=== PATIENT | male | born 1945 | race Two or more races ===

== ENCOUNTER 2022-01-10 19:14 | Inpatient (IN) | payer OTHER ==
[~2022-01-10] VITALS: Ht 182.9 cm; Wt 77.1 kg
--- NOTE | 2022-01-10 19:38 | NUR ---
PACIENTE ALERTA Y ORIENTADO POR ILAN. REFIERE DESDE EL MINE DE TERRY TENER SATURACION BAJA, AL MOMENTO DE REALIZAR EL TRIAGE EN 84% CON OXIGENO Y REFIERE SENTIRSE CANSADO.
[2022-01-10] MEDS ORDERED: OFEV150 MG (19:44)
[2022-01-10] MEDS ORDERED: ZOCOR80 MG (19:44)
[2022-01-10] MEDS ORDERED: CARVEDILOL ER40 MG (19:45)
[2022-01-10] MEDS ORDERED: TAMS0.4C (19:45)
[2022-01-10] MEDS ORDERED: ELIQUIS5 MG (19:45)
--- NOTE | 2022-01-10 20:10 | NUR ---
CANALIZACIONES FUERON EN BRAZO Y MANO DERECHA.
--- NOTE | 2022-01-10 21:21 | NUR ---
PTE SE EDUCA SOBRE EL TRATAMIENTO QUE RECIBIRA EN EL HOSPITAL Y EMILY REFIERE ENTENDER.SE LE MARTIN MUESTRAS DE LILI Y SE LE ADMINISTRA MEDICAMENTOS CALEB ORDEN MEDICA.
[2022-01-14] MEDS ORDERED: FUROSEMIDE40 MG (15:03)
[2022-01-14] MEDS ORDERED: TRELEGY ELLIPT1 EAC1 (15:03)
[2022-01-14] MEDS ORDERED: POTASSIUM CHLO10 MEQ (15:03)
[2022-01-14] MEDS ORDERED: ALPRAZOLAM0.5 MG (15:03)
[2022-01-14] MEDS ORDERED: CARVEDILOL12.5 M1 (15:04)
[2022-01-14] MEDS ORDERED: AZELASTINE137 MCG/0. (15:04)
[2022-01-14] MEDS ORDERED: FLONASE16 GM (15:04)
== END 2022-01-21 08:00 | disposition expired | DRG 196 ==
LOC: ER 19:14 → SEC-K 22:26 → SURH 01-11 09:24 → ICU 01-15 01:42
PROVIDERS: ADMIT Internal Medicine; ATTEND Internal Medicine
PROC: 4A12X4Z Monitoring of Cardiac Electrical Activity, External Approach (ICD-10-PCS; principal; 2022-01-10)
PROC: 5A09557 Assistance with Respiratory Ventilation, Greater than 96 Consecutive Hours, Continuous Positive Airway Pressure (ICD-10-PCS; 2022-01-14)
PROC: 5A0945A Assistance with Respiratory Ventilation, 24-96 Consecutive Hours, High Flow/Velocity Cannula (ICD-10-PCS; 2022-01-14)
PROC: 02HV33Z Insertion of Infusion Device into Superior Vena Cava, Percutaneous Approach (ICD-10-PCS; 2022-01-16)
DX: J84.10 Pulmonary fibrosis, unspecified (principal); J18.9 Pneumonia, unspecified organism; J96.01 Acute respiratory failure with hypoxia; J96.02 Acute respiratory failure with hypercapnia; I50.22 Chronic systolic (congestive) heart failure; E87.0 Hyperosmolality and hypernatremia; I11.0 Hypertensive heart disease with heart failure; I25.10 Atherosclerotic heart disease of native coronary artery without angina pectoris; I48.91 Unspecified atrial fibrillation; I27.20 Pulmonary hypertension, unspecified; Z66 Do not resuscitate; Z99.81 Dependence on supplemental oxygen